=== PATIENT | female | born 1995 | race Caucasian/White ===

== ENCOUNTER 2022-02-06 08:00 | Outpatient (CLI) | payer BC ==
--- NOTE | 2022-02-06 15:28 | XRAY Report ---
PROCEDURE: Calcaneus LT INDICATIONS: PAIN OF LEFT HEEL TECHNIQUE: Two views of the calcaneus were acquired. COMPARISON: None FINDINGS: Bones: No fractures or dislocations. No suspicious bony lesions. Soft tissues: No suspicious calcifications. Achilles tendon appears normal. IMPRESSION: Normal calcaneus Reviewed by: Junior Kilgore on 02/06/2022 2:27 PM DENZEL Approved by: Junior Kilgore on 02/06/2022 2:27 PM DENZEL Station ID: [id number]
== END 2022-02-06 23:59 | disposition home or self-care (01) ==
LOC: DI.S 08:00
PROVIDERS: ATTEND Physician Assistant
DX: M79.672 Pain in left foot (principal)